=== PATIENT | female | born 1955 | race Caucasian/White ===

== ENCOUNTER → 2024-10-02 12:31 | Outpatient (REF) | payer MEDICARE, SELFPAY | LOC: RCS 12:31 | PROVIDERS: ATTENDING PHYSICIAN Internal Medicine Cardiovascular Disease; FAMILY PHYSICIAN Internal Medicine | DX: E11.9 Type 2 diabetes mellitus without complications (principal); Z91.89 Other specified personal risk factors, not elsewhere classified | CPT/HCPCS: 93017; 93350; Q9950 ==

== ENCOUNTER → 2024-10-13 12:32 | Outpatient (REF) | payer MEDICARE, SELFPAY ==
--- NOTE | 2024-10-13 14:55 | CARDSERVLU ---
Echocardiogram with Lumason completed after protocol screening completed. Allergies verified.
Patent IV site: __Left AC___
IV site flushed with 0.9% NaCl pre and post administration.
Diluted bolus method utilized to enhance visualization of ventricular cortés.
Total volume given: _4.0___ mL
Patient tolerated all procedures well without complications.
== END ==
LOC: RCS 12:32
PROVIDERS: ATTENDING PHYSICIAN Internal Medicine Cardiovascular Disease; FAMILY PHYSICIAN Internal Medicine
DX: I10 Essential (primary) hypertension (principal); Z91.89 Other specified personal risk factors, not elsewhere classified; R06.09 Other forms of dyspnea
CPT/HCPCS: 93306

== ENCOUNTER → 2024-12-11 09:34 | Outpatient (REF) | payer MEDICARE, SELFPAY ==
[2024-12-11 10:45] LABS: ALT (SGPT) 26 U/L (0-35); AST (SGOT) 20 U/L (14-36); Albumin 4.7 g/dl (3.5-5.0); Alkaline Phosphatase 55 U/L (38-126); Blood Urea Nitrogen 16 mg/dl (7-17); Calcium 9.4 mg/dl (8.4-10.2); Carbon Dioxide 27 mmol/L (22-30); Chloride 106 mmol/L (98-107); Glucose 143 mg/dl (70-99); HDL Cholesterol 91 mg/dl; LDL Cholesterol, Calculated 120 mg/dl; Potassium 4.8 mmol/L (3.5-5.1); Sodium 139 mmol/L (135-145); Total Protein 7.3 g/dl (6.3-8.2); Very Low Density Lipoprotein 13 mg/dl (0-30); eGFR > 60.00
[2024-12-11 10:47] LABS: C-Reactive Protein < 5.00 mg/L (0.0-10.00)
== END ==
LOC: REG 09:34
PROVIDERS: ATTENDING PHYSICIAN Internal Medicine Cardiovascular Disease; FAMILY PHYSICIAN Internal Medicine
DX: E78.5 Hyperlipidemia, unspecified (principal); E11.9 Type 2 diabetes mellitus without complications
CPT/HCPCS: 36415; 80053; 80061; 86140